=== PATIENT | male | born 1965 | race African-American/Black ===

== ENCOUNTER 2017-02-18 20:49 | Emergency (ER) | payer OTHER, MEDICAID ==
[~2017-02-18] VITALS: Ht 182.9 cm; Wt 181.0 kg
[~2017-02-18 20:49] MED LIST: CINA30 PO; ETOMIDATE 2MG/ML 10ML VIAL IV ONE; HYDR-523 PO; SEVE800T8 PO; SUCCINYLCHOLINE CHLORIDE 200MG/10ML VIAL IV ONE
[2017-02-18] MEDS ORDERED: METHYLPREDNISOLONE SOD SUCC 125 MG/2 ML VIAL IV STA (21:51)
[2017-02-18] MEDS ORDERED: SODIUM CHLORIDE 0.9% 1,000 ML IV ONE (21:51)
[2017-02-18] MEDS ORDERED: ALBUTEROL (0.083%) 2.5MG/3ML NEB HHN STA (21:51)
[2017-02-18] MEDS ORDERED: IPRATROPIUM BROMIDE (0.02%) 0.5MG/2.5ML NEB HHN STA (21:51)
[2017-02-18] MEDS ORDERED: ASPIRIN 81MG TABLET PO ONE (22:00)
[2017-02-18] MEDS ORDERED: MAGNESIUM 2 G PREMIX 50 ML IV ONE (22:00)
[2017-02-18] MEDS ORDERED: NITROGLYCERIN OINT 1GM/INCH UDPKT TD ONE (22:00)
[2017-02-18 23:06] LABS: BASOPHILS % 0.3 % (0.0-2.0); EOSINOPHILS % 1.3 % (0.0-5.0); HEMATOCRIT. 35.2 % (42.0-52.0); HEMOGLOBIN. 11.4 g/dL (14.0-18.0); LYMPHOCYTES % 10.8 % (20.0-50.0); MEAN CORPUSCULAR HEMOGLOBIN 29.2 pg (28.0-32.0); MEAN CORPUSCULAR VOLUME 90.3 fL (80.0-94.0); MEAN PLATELET VOLUME 10.2 fl (7.4-10.4); MONOCYTES % 9.6 % (2.0-8.0); PLATELET 99 x1000/uL (130-400); RED BLOOD CELL COUNT 3.89 mill/uL (4.7-6.1); RED CELL DISTRIBUTION WIDTH 14.2 % (11.6-14.6)
[2017-02-18 23:18] LABS: D-DIMER 2.11 mg/L FEU (<0.50); INR 1.1; PARTIAL THROMBOPLASTIN TIME 29.5 sec (24.0-34.0); PROTHROMBIN TIME 11.4 sec
[2017-02-18 23:41] LABS: CARBON DIOXIDE 28 mEq/L (21-32); CHLORIDE 101 mEq/L (98-107); TROPONIN I 0.13 ng/mL (0.00-0.04)
[2017-02-18 23:42] LABS: ETHANOL BLOOD < 10 mg/dL
[2017-02-19 04:00] VITALS: BP 133/79
[2017-02-19] MEDS ORDERED: IOHEXOL-350 100 ML BOTTLE ONE (13:21)
[2017-02-19] MEDS ORDERED: SODIUM CHLORIDE 0.9% 10ML VIAL ONE (13:21)
== END 2017-02-19 05:50 | disposition short-term general hospital (02) ==
LOC: ER 20:58 → CANBEDREQ 02-19 03:42 → ER 02-19 05:50
DX: J44.1 Chronic obstructive pulmonary disease with (acute) exacerbation (principal); I48.91 Unspecified atrial fibrillation; I12.0 Hypertensive chronic kidney disease with stage 5 chronic kidney disease or end stage renal disease; N18.6 End stage renal disease; Z99.2 Dependence on renal dialysis; Z87.891 Personal history of nicotine dependence; Z88.6 Allergy status to analgesic agent; Z88.8 Allergy status to other drugs, medicaments and biological substances
CPT/HCPCS: 36415; 71010; 71275; 80053; 83605; 83880; 84484; 85025; 85379; 85610; 85730; 87040; 93005; 94640; 96365; 96366; 96375; 99285; A4216; G0482; J0330; J2930; J3475; J3490; J7030; J7611; Q9967